=== PATIENT | male | born 1985 | race Hispanic/Latino ===

== ENCOUNTER → 2018-04-28 | Day surgery (SDC) | payer OTHER ==
[~2018-04-28] VITALS: Ht 180.3 cm; Wt 98.1 kg
[~2018-04-28] MED LIST: FLOMAX0.4 M1 PO; PERCOCET 5-3251 EACH PO; TRAMADOL HCL50 M1 PO; ZOFRAN4 M2 PO
--- NOTE | 2018-04-28 19:26 | Operative Report ---
Operative/Inv Procedure Report Surgery Date: 04/28/18 Name of Procedure: right ureter eswl, cystoscopy right stent removal, fluoroscopy Pre-Operative Diagnosis: right ureter stone with stent Post-Operative Diagnosis: same Estimated Blood Loss: scant Surgeon/Electrical Intern: Steven Pearce MD Anesthesia: moderate sedation Specimens: right stent Complications: none Condition: improved: pain free on discharge home Operative/Procedure Note Note: The patient was taken to the operating room and placed on the ESWL table in supine position. Time out was performed, with the patient awake, to confirm identity, procedure, laterality, and other pertinent glen-operative information. After adequate anesthesia, the patient was positioned so that the right flank was placed over the ESWL table cut-out, and overlying the dome of the shockwave generator. C-arm fluroscopy, as well as renal US was used to locate the stone, and evaluate the right kidney. The stone was faintly visible on fluroloscopy at the right mid-ureter. Renal US confirmed mild hydronephrosis with no additional stone seen in the right kidney. The right ureter stone was approximate 5 mm in size, and faintly visible with fluoroscopy. Using the C-Arm fluoroscopy in an A-P, and Oblique view, the position of the ureter stone was optimized at the center of the crosshairs. At this point, E.S.W.L. was initiated at low power levels x 200 shocks. After noting the patient's tolerance to the shockwaves, the shockwave power level was quickly maximized. At the end of the procedure, the composition of the stone had changed significantly indicating the pulverization of the ureter stone. A total of 2500 shockwaves were delivered to the stone, in order to achieve adequate lithotrypsy. Once the ESWL concluded, the pt. was repositioned in frog-legged position, draped and prepped in the usual surgical fashion. A 22 [place] cystoscope sheath with a 30 angle lens was then inserted into the bladder. The bladder was thoroughly and systematically surveyed revealing no tumor, no stone. Both ureteral orifices were in their orthotopic position. The right orifice was intubated with a stent. The alligator forcep was then used to grasp the stent, and the cystoscope along with entire stent was removed without difficulty. The patient tolerated the procedures well, was awakened, and taken to recovery in satisfactory condition via stretcher. The pt will be dischared to home with pain meds, diet orders, and intructions to catch fragments with straining the urine. The patient is to have follow-up renal ultrasound and KUB within 1-2 weeks and f/u in the office after discharge. Discharge Disposition: Same Day Admissions CC: Ramses BOYD,Steven
== END ==
LOC: STS 01:19
DX: N20.1 Calculus of ureter (principal); N13.30 Unspecified hydronephrosis
CPT/HCPCS: J2250

== ENCOUNTER → 2018-05-14 | Day surgery (SDC) | payer OTHER ==
[~2018-05-14] VITALS: Ht 180.3 cm; Wt 97.1 kg
[~2018-05-14] MED LIST changes: +MECLIZINE HCL25 MG PO; +ZOLOFT25 M1 PO
[2018-05-14 10:09] LABS: ABSOLUTE BASOPHIL COUNT 0 /CUMM (0.0-0.2); ABSOLUTE EOSINOPHIL COUNT 0.1 /CUMM (0.0-0.7); ABSOLUTE GRANULOCYTE CT 6.6 /CUMM (1.4-6.5); ABSOLUTE LYMPH COUNT 1.7 /CUMM (1.2-3.4); ABSOLUTE MONOCYTE COUNT 1.5 /CUMM (0.10-0.60); BASOPHIL % 0.4 % (0.0-2.0); EOSINOPHIL % 1.5 % (0-5); GRANULOCYTE % 65.9 % (42.2-75.2); HEMATOCRIT 46.1 % (42-52); MEAN CORPUSCULAR HGB 30.7 PG (27.0-31.0); MEAN CORPUSCULAR HGB CONC 34.6 G/DL (33.0-37.0); MEAN CORPUSCULAR VOLUME 88.8 FL (80.0-94.0); MEAN PLATELET VOLUME 7.8 FL (7.4-10.4); PLATELET COUNT 334 /CUMM (130-400)
--- NOTE | 2018-05-14 10:27 | ED GENERAL ADULT ---
History of Present Illness General Chief Complaint: Abdominal Pain/Flank Pain Stated Complaint: flank pain Source: patient Exam Limitations: no limitations Vital Signs & Intake/Output Vital Signs & Intake/Output Vital Signs Date Time Temp Pulse Resp B/P B/P Pulse O2 O2 Flow FiO2 Mean Ox Delivery Rate 05/14 1740 98.0 68 18 145/92 98 Room Air Room Air 05/14 1656 97.5 76 20 125/73 98 Room Air 05/14 1427 98.7 69 20 130/75 98 Room Air 05/14 1154 97.9 76 18 129/77 99 Room Air 05/14 0857 96.6 110 18 124/78 99 Room Air Room Air ED Intake and Output 05/15 0000 05/14 1200 Intake Total 1000 Output Total Balance 1000 Intake, IV 1000 Patient 214 lb Weight Weight Reported by Patient Measurement Method Allergies Coded Allergies: nut - unspecified (Severe, ANAPHYLAXIS 05/14/18) ibuprofen (Intermediate, ANAPHYLAXIS 05/14/18) sulfamethoxazole (From Bactrim) (Intermediate, ANAPHYLAXIS 05/14/18) trimethoprim (From Bactrim) (Intermediate, ANAPHYLAXIS 05/14/18) aspirin (ANAPHYLAXIS 05/14/18) Reconcile Medications Meclizine HCl 25 MG TABLET 1 TAB PO TIDPRN light headed Ondansetron HCl (Zofran) 4 MG TABLET 1 TAB PO TID PRN NAUSEA/VOMITING ( Reported) Sertraline HCl (Zoloft) 25 MG TABLET 1 TAB PO DAILY MENTAL HEALTH (Reported) Triage Note: PT RETURNS TO ED WITH C/O BILATERAL FLANK PAIN, "I HAVE KIDNEY STONES, I DIDN'T EVEN MAKE IT 3 WEEKS". Triage Nurses Notes Reviewed? yes HPI: 32-year-old male with past medical history renal stones recently seen in the emergency department 3 weeks ago underwent stent placement on the right with Dr. Pearce subsequently removed and received lithotripsy for a 6 mm stone on the right. At that time patient was notified of a 7 mm stone on the left side. Patient was scheduled to have a follow-up with Dr. Pearce this week to obtain renal ultrasound and analyzed stones. However this morning he woke up and after his first urination had an acute onset of sweating low back pain which was bilateral radiating to his abdomen and down to his groin. Patient denies any dysuria or hematuria noted. He reports the pain is intermittent and sharp in nature scoring 8-9 out of 10. Of note patient has an allergy to NSAID class which causes his eyes to swell. Patient denies any fever, chills, chest pain, cough, or shortness of breath. PMH also includes anxiety, depression, PTSD. Patient is being treated at [facility] for these issues. He recently stopped taking Zoloft as he did not tolerated it well with significant lethargy. He started smoking tobacco 1 week ago; 1ppd. Smoking cessation was advised. Patient reports minimal etoh consumption. (Bessie Cespedes MD) Past History Travel History Traveled to [place] past 21 day No Medical History Any Pertinent Medical History? see below for history Neurological: NONE EENT: NONE Cardiovascular: NONE Respiratory: NONE Gastrointestinal: NONE Hepatic: elevated LFT's Renal: KIDNEY STONES Musculoskeletal: NONE Psychiatric: depression Endocrine: NONE Blood Disorders: NONE Cancer(s): NONE Surgical History Surgical History: none, right ureteral stenting; lithotripsy Psychosocial History Where do you live Home Who do you live with Patient and family Services at Home None What is your primary language Georgian Tobacco Use: Current Daily Use Daily Tobacco Use Amount/Type: =< 4 Cigarettes daily (started one week ago; 1ppd ), => 5 Cigarettes daily ETOH Use: occasional use Illicit Drug Use: denies illicit drug use Family History Hx Contributory? No (Bessie Cespedes MD) Review of Systems Review of Systems Constitutional: Reports: diaphoresis. Denies: chills, fever, malaise. EENTM: Reports: no symptoms. Respiratory: Reports: no symptoms. Cardiovascular: Reports: no symptoms. GI: Reports: abdominal pain. Denies: bloating, constipation, diarrhea, nausea, vomiting. Genitourinary: Reports: urgency. Denies: dysuria, frequency, hematuria, pain. Musculoskeletal: Reports: back pain. Skin: Reports: no symptoms. Neurological/Psychological: Reports: anxiety, depressed. (Bessie Cespedes MD) Physical Exam Physical Exam General Appearance: well developed/nourished, alert, awake, moderate distress Head: normal appearance Eyes: Right: normal appearance, PERRL. Neck: normal inspection, supple Respiratory: normal breath sounds, chest non-tender, no respiratory distress Cardiovascular: tachycardia Gastrointestinal: guarding, tenderness Back: CVA tenderness (R), CVA tenderness (L) (Bessie Cespedes MD) Core Measures ACS in differential dx? No CVA/TIA Diagnosis: No Sepsis Present: No Sepsis Focused Exam Completed? No (Peter LOUIS,Travon Whitaker) Progress Differential Diagnoses I considered the following diagnoses in my evaluation of the patient: [renal stones; pyelonephritis; uti] Plan of Care: Orders Procedure Date/time Status Nothing by Mouth 05/14 D Active CULTURE,URINE 05/14 1029 Active URINALYSIS 05/14 933 Complete COMPREHENSIVE METABOLIC PANEL 05/14 933 Complete CBC WITHOUT DIFFERENTIAL 05/14 933 Complete Laboratory Tests 05/14/18 1030: Urinalysis LIGHT H, Urine Color YEL, Urine Clarity HAZY H, Urine pH 6.0, Ur Specific [place] >= 1.030, Urine Protein 100 H, Urine Ketones NEG, Urine Nitrite NEG, Urine Bilirubin NEG@ICTO, Urine Urobilinogen 1.0, Ur Leukocyte Esterase TRACE H, Ur Microscopic SEDIMENT EXAMINED, Urine RBC >75 H, Urine WBC 1-3 H, Ur Epithelial Cells RARE, Urine Crystals 4+ CA OX H, Urine Bacteria MOD H, Urine Mucus MANY H, Urine Hemoglobin LARGE H, Urine Glucose NEG 05/14/18 1002: Anion Gap 10, Estimated GFR > 60, BUN/Creatinine Ratio 10.0, Glucose 105 H, Calcium 9.8, Total Bilirubin 1.0, AST 68 H, ALT 157 H, Alkaline Phosphatase 90 , Total Protein 7.6, Albumin 4.4, Globulin 3.2, Albumin/Globulin Ratio 1.4, CBC w Diff NO MAN DIFF REQ, RBC 5.20, MCV 88.8, MCH 30.7, MCHC 34.6, RDW 13.0, MPV 7.8, Gran % 65.9, Lymphocytes % 17.1 L, Monocytes % 15.1 H, Eosinophils % 1.5, Basophils % 0.4, Absolute Granulocytes 6.6 H, Absolute Lymphocytes 1.7, Absolute Monocytes 1.5 H, Absolute Eosinophils 0.1, Absolute Basophils 0 Microbiology 05/14 1030 URINE ROUT: Urine Culture - RECD Comments: 10:35 32 year old male with known right and left renal stones s/p stenting placement and removal with subsequent lithotripsy on right for 6mm stone [address] Pearce performed initial procedure but is currently out of town. Patient was suppose to see him in his office next week for renal u/s and follow up but presented to ED this morning with acute bilateral back pain radiating to abdomen and groin. Work up will include CBC, BEP, UA, UCx, ct abd/pelv, pain control with 0.5mg Dilaudid IV, IV NS 1L bolus, call to Dr. Pearce (Dr. Clark wall insulation sprayer) 12:47 Laboratory work up shows UA with RBC and WBC with moderate bacteria present. Chemistry revealed elevated LFTs with ALT 157 (previous 102). Patient states he is aware of this finding and this has been present for 3 years. He was diagnosed with NAFLD and is working with Dr. Souza (PCP) regarding this issue. Patient has lost over 100lbs since last year trying to improve his enzymes. He will continue evaluation for this finding as an outpatient. 14:12: results of CT abd/pelv: IMPRESSION: 1. Right renal hydronephrosis and hydroureter secondary to a stone lodged in the proximal right ureter at the junction of the proximal third to distal two-thirds. The stone is approximately 4 mm in diameter. There has been no change. 2. Redemonstration of a small nonobstructing stone lower calyx left kidney. 3. Stable mildly prominent mesenteric lymph nodes. 16:[address] Clark with findings. He requests that patient be kept NPO and he will come in to place a ureteral stent at 18:00 tonight. He plans to discharge the patient home after the procedure. (Bessie Cespedes MD) Initial ED EKG: none (Travon Green DO) Departure Departure Condition: Stable Referrals: Harley BOYD,Mukul Swartz (PCP/Family) Departure Forms: Customer Survey General Discharge Information (Bessie Cespedes MD) Departure Disposition: STILL A PATIENT Clinical Impression Primary Impression: Kidney stones Comments 05/14/18 4:10 PM The patient has a lodged right-sided stone. There is been no movement. The case was discussed with Dr. Clark. He is for stent placement in the operative suite this evening. The patient will be signed out to Dr. Sagastume at 7 PM OR/GI Note Spoke With: Eduardo BOYD,Parveen Quiroga ED Treatment Decision: JONH JAUREGUI requires urgent operative management or an emergent procedure that cannot be performed in the Emergency Room setting. Transport To: Surgical Suite (Travon Green DO) Resident Co-Sign Statement Statement: ED Attending supervision documentation- x I saw and evaluated the patient. I have also reviewed all the pertinent lab results and diagnostic results. I agree with the findings and the plan of care as documented in the Resident's documentation. [] I have reviewed the ED Record and agree with the Resident's documentation. [] Additions or exceptions (if any) to the Resident's note and plan are summarized below: [] (Tanika BOYD,Claudy) Critical Care Note Critical Care Note Critical Care Time: non-applicable (Travon Green DO)
--- NOTE | 2018-05-14 14:07 | CT SCAN REPORT ---
EXAMINATION: CT ABDOMEN AND PELVIS WITHOUT CONTRAST CLINICAL INFORMATION: Kidney stone, back pain. COMPARISON: 04/24/2018 TECHNIQUE: Multidetector volumetric imaging was performed from the superior aspect of the liver through the pubic symphysis. It is a noncontrast study. Sagittal and coronal reformatted images were obtained on the technologist's workstation. DLP: 367 mGy-cm FINDINGS: LOWER THORAX: Included lung bases are clear. HEPATOBILIARY: No focal hepatic lesions. No biliary ductal dilatation. GALLBLADDER: Gallbladder unremarkable. SPLEEN: Spleen is normal in size. PANCREAS: No focal mass or ductal dilatation. STOMACH AND GASTROINTESTINAL TRACT: Stomach is grossly unremarkable. There is no bowel distention or thickening. No CT evidence of appendicitis. ADRENALS: No adrenal nodules. KIDNEYS/URETERS: Redemonstration of the moderate right renal hydronephrosis and hydroureter secondary to a stone lodged in the proximal right ureter at the junction of the proximal third and distal two-thirds. The stone measures about 7 mm craniocaudally and 4 mm transversely. Has not significantly changed from prior study. As previously noted, there is an additional nonobstructing 3 mm stone in the lower calyx of the left kidney. Perinephric fat remains clear on both sides. URINARY BLADDER: Partially decompressed. PELVIC VISCERA: Unremarkable PERITONEUM: No free air or fluid. LYMPH NODES: Redemonstration of mildly prominent peritoneal lymph nodes, uncertain etiology, the largest right of midline measures about 1.5 x 1.2 cm. Purcell image marked. VASCULAR:Abdominal aorta normal in size, no aneurysm found. BONES, ABDOMINAL WALL AND SOFT TISSUES: Age-appropriate changes of the spine and skeletal system, no destructive osteolytic or osteosclerotic bone lesion found. IMPRESSION: 1. Right renal hydronephrosis and hydroureter secondary to a stone lodged in the proximal right ureter at the junction of the proximal third to distal two-thirds. The stone is approximately 4 mm in diameter. There has been no change. 2. Redemonstration of a small nonobstructing stone lower calyx left kidney. 3. Stable mildly prominent mesenteric lymph nodes. Exam otherwise remains normal.
[2018-05-14 17:40] VITALS: BP 145/92
--- NOTE | 2018-05-14 20:04 | RADIOLOGY REPORT ---
EXAMINATION: INTRAOPERATIVE FLUOROSCOPIC GUIDANCE AND ABDOMEN CLINICAL INFORMATION: Nephrolithiasis. Ureteroscopy. COMPARISON: Same day abdominal and pelvic CT. TECHNIQUE: Fluoroscopic time was utilized in the OR for Dr. Clark. Fluoroscopic images were obtained in the AP projection. FINDINGS: Fluoroscopic guidance was provided during a right ureterogram and right double-J ureteral stents. On the final images, the stent is in appropriate position. FLUOROSCOPY TIME: 7 seconds of fluoroscopic time was utilized for the entirety of this examination. IMPRESSION: Fluoroscopic guidance was provided during a right ureterogram and right double-J ureteral stents. On the final images, the stent is in appropriate position.
--- NOTE | 2018-05-14 21:47 | Operative Report ---
Operative/Inv Procedure Report Surgery Date: 05/14/18 Name of Procedure: Cystoscopy and right ureteral stent placement with fluoroscopy Pre-Operative Diagnosis: Right ureteral calculus with colic Post-Operative Diagnosis: Same Estimated Blood Loss: scant Surgeon/Dispute Resolution Specialist: Dr. Clark Anesthesia: laryngeal mask airway Operative Indication: History of a right ureteral calculus, with previous colic. Underwent stent placement, with subsequent lithotripsy. Stent was removed 2 weeks ago, he developed sudden onset of pain early this morning. Pain was severe and accompanied by nausea and vomiting. He was seen in the ER, and his pain persisted despite Dilaudid. He underwent a CT scan, which revealed a persistent right ureteral calculus. I discussed the situation at length with the patient and the tenderness there. I recommend he undergo a right ureteral stent placement, with further procedure to be performed not emergently. He has a proximal stone, which could warrant repeat lithotripsy. He is agreeable to stent placement, knowing that it will not resolve the stone, which should relieve his pain. He will have the stone resolved electively by Dr. Pearce. Patient verbalizes good understanding of the situation, and wishes to proceed with right ureteral stent placement. He was explained the complications/indications thereof at great length. Operative/Procedure Note Note: After uneventful induction of general anesthesia via LMA, patient was supine on the cystoscopy table in lithotomy position. He was prepped and draped in a sterile fashion. At this point a 22 [place] Islander cystoscope was passed per urethra and into the bladder. Thorough inspection of bladder did not reveal any stones or mucosal lesions. The right orifice was noted to be normal in addition a contour. This was cannulated with an open-ended catheter, which was passed up into the right kidney. Through this was passed a Glidewire, and the ureteral catheter was removed. Over the guidewire was then passed a double-J stent which was positioned fluoroscopically as well as endoscopically. Upon completion of this the bladder was emptied and the cystoscope was removed. The patient was returned to recovery room in good condition. CC: Ramses BOYD,Steven
--- NOTE | 2018-05-18 12:49 | OP PSYCH INTRA-AGENCY ASSESS ---
Psych Intra-Agency Transfer Date of Group or Service 05/18/18 Time of Group or Service: 1100 (-0125) Part 1 Transferring Program: IOP Accepting Program: OPS Presenting Problem: Patient is a 32 year old male who is being referred by [facility]. Patient was in IOP from (05/05 - 05/13/18) attending three sessions and was unable to complete the program due to inability to be in a group setting due to PTSD symptoms. Prior he was seen in the ED two days after he took percocets and had thoughts "maybe it would be better if I wasn't alive." He woke up immediately with remorse. Sharing he lost both of his dads and does not want his children to go through the pain. At today's intake patient stated overall he is "struggling". Rated current depression 8/10 and anxiety 8/10, with 10 being the worst. Identified greatest stressor as "life in general" and identified an effective coping skill as "smoke cigs". Patient denies SI/HI at this time. Denies feeling isolated/socially withdrawn at this time Patient states his goal of treatment is "feel normal". Patient shared his support system consists of "mom, aunt, and uncle". Shared today is a tough day for him, it is the anniversary of his step-father's passing. Preferred Learning Style i.e. visual, auditory, experiential, etc: hands on Orientation Person, Place, Situation Affect WNL Speech WNL Neuro-vegetative Concentration Poor, Sleep Disturbance Thought Process Logical/Rational, WNL Thought Content WNL Memory WNL Insight Fair Judgment Fair Appearance Dress/Hygiene: Casually dressed, appears stated age, neatly groomed Risk Assessment RISK ASSESSMENT Suicidal Ideation/Attempts (past or current): Past: Recent attempt OD 05/01/18 Current: Denies Family History: brother - attempted a couple years ago Homicidal Ideation/Attempts (past or current): Past: Denies Current: Denies Protective factors for SI/HI: "Kids" Degree of Intent None Risk Factors Hx of suicide attempt(s), Male, Substance Abuse Lethality Rating 1 (mild) Medication Review Allergies Coded Allergies: nut - unspecified (Severe, ANAPHYLAXIS 05/14/18) ibuprofen (Intermediate, ANAPHYLAXIS 05/14/18) sulfamethoxazole (From Bactrim) (Intermediate, ANAPHYLAXIS 05/14/18) trimethoprim (From Bactrim) (Intermediate, ANAPHYLAXIS 05/14/18) aspirin (ANAPHYLAXIS 05/14/18) Medication Details MEDICATIONS PSYCHIATRIC MEDICATIONS None Part 2 Assessed Needs and Initial Treatment Plan/Goals: Patient will benefit from continued treatment in [facility]. He will attend medication management with Dr. Eduar MD monthly/as needed. Patient is set to start individual therapy tomorrow at [facility]. Further Evaluations Recommended: X None Indicated Neurological Vocational Psychiatric X Medical (H&P) Nutritional Psychological Educational SA Assessment Other * To be completed by Admitting MD or Assigned DIRECTOR SECURITY MANAGEMENT Only PRE-CERTIFICATION FOR ADMISSION- [facility] Care Provider: Name of Reviewer/Research Technician: Contact Telephone #: # Inpatient days approved: Authorization #: Date of Next Review: DSM5/PS Stressors/Medical Prob Diagnosis' (DSM 5, Stressors, Medical): F32.9 Unspecified depression, F41.1 NARENDRA, F12.20 Cannabis use disorder moderate, r/o PTSD, r/o Specific phobia situational; chronic pain (arthritis), kidney stones; marital, complicated grief Comments: WHODAS: 19 PCL-C: 46
== END ==
LOC: ERH 08:54 → ER-OR 09:02 → ERH 09:02 → ER-OR 17:40 → STS 17:40
PROVIDERS: Physician Assistant Medical
DX: N20.1 Calculus of ureter (principal); R10.9 Unspecified abdominal pain; R11.2 Nausea with vomiting, unspecified; R79.89 Other specified abnormal findings of blood chemistry; F17.200 Nicotine dependence, unspecified, uncomplicated
CPT/HCPCS: 74176; 76000; 81001; 87086; 96374; 96375; 96376; C2617; J0690; J2250; J2405

== ENCOUNTER → 2018-05-21 | Day surgery (SDC) | payer OTHER ==
[~2018-05-21] VITALS: Ht 180.3 cm; Wt 97.1 kg
--- NOTE | 2018-05-22 10:09 | Operative Report ---
Operative/Inv Procedure Report Surgery Date: 05/21/18 Name of Procedure: cystoscopy: right ureteroscopy with laser standby for ureter stone, stent removal. retrograde pyelogram, fluorosocpy. Pre-Operative Diagnosis: right urete stone and stent Post-Operative Diagnosis: same Estimated Blood Loss: scant Surgeon/Director Apparel: Steven Pearce MD Anesthesia: general endotracheal tube Specimens: right ureter stone and stent Complications: none Condition: stone free. Operative/Procedure Note Note: The patient was taken to the operating room and moved onto the OR table in supine position. Timeout was performed, with the patient awake, in order to confirm the patient's correct identity, procedure, laterality, anesthesia, antibiotics, and other pertinent perioperative information. After adequate anesthesia and antibiotics, the patient was then placed in lithotomy stirrups, draped and prepped in the usual surgical fashion. A 22 [place] cystoscope sheath with the 30 angle lens was inserted into the ureathra without difficulty. Upon entering the bladder, the bladder was noted to be free of tumor, and free of stone. Both ureteral orifices were in their orthotopic position, with clear reflux from the left ureter. The right ureter had a stent in place, which was grasped with an aligator grasper, and extracted intact, and without difficulty. The cystoscope was then re-inserted into the bladder. The right ureteral orifice was intubated with an 8 [place] cone-tipped catheter. Retrograde pyelogram was performed revealing a filling defect in the mid-proximal ureter consistent with small stone, and distal narrowing consistent with edema/ stricture. On fluoroscopy, there was mild proximal hydronephrosis. The cone- tipped catheter was removed, and then the right orifice was intubated with a 0.035 safety gluidewire. The Glidewire was advanced into the right ureter, and advanced into the right renal pelvis, with fluoroscopic visualization. Over the gluide wire, a flexible ureteroscope was rail-roaded, and advanced with fluoroscopic visualization into the right renal pelvis, with difficulty past the strictured area. The ureteroscope was then removed leaving the Glidewire in place. Over the Glidewire a 10 [place] by 35 cm ureteral access sheath was gently railroaded over the Glidewire. With fluoroscopic visualization, gentle dilatation with advancement of the ureteral access sheath was accomplished without difficultyt. The obturator was removed leaving the sheath in place. The gluidewire was left in place, and the flexible ureteroscope was advanced via the access sheath without difficulty. The small ureter stone was visualized, and under direct visualization a Bard zero-tip basket was deployed to capture it. The entire stone was easily extracted and sent for analysis. Laser standby was disengaged. The flexible ureteroscope was then advanced, and used to examine the renal pelvis, and all calyxes. NO tumor, now stones were seen in the kidney: however, multiple Apolinar plaques were noted for future stone formation. With the flexible ureteroscope slowly retracted, the entire length of the ureter was aslo visualized in order to confim no significantly stone framents, nor tumor was seen on the way out. The bladder was then drained via the cystoscope which was then removed. An 18 [place] leon was then inserted without difficulty to be removed in the RR. The patient tolerated both procedures well, and was taken to the recovery room in satisfactory condition. Once discharged, the pt. will have pain medication, antibiotics and instructions to follow up in one or 1-2 week's time for renal US /KUB. Discharge Disposition: PACU Additional Comments: pt to schedule f/u renal US in 1-2 weeks. CC: Steven Pearce MD
--- NOTE | 2018-05-25 17:34 | RADIOLOGY REPORT ---
EXAMINATION: CR ABDOMEN/INTRAOPERATIVE FLUOROSCOPY CLINICAL INDICATION: Right ureteral stent removal. Ureteroscopy in retrograde pyelogram in OR. COMPARISON: Right upper quadrant ultrasound dated 05/20/2018. TECHNIQUE/FINDINGS: Fluoroscopic equipment was dedicated to the operating room for the performance of an intraoperative procedure. Several 9 spot films were acquired and are archived in PACS demonstrating various stages of opacification of the right renal collecting system and proximal right ureter with caliectasis/mild hydronephrosis demonstrated. Please refer to operative notes for procedural detail. FLUOROSCOPY TIME: 0.3 minutes. IMPRESSION: Administrative dictation for intraoperative fluoroscopy and image archiving in PACS. Please refer to operative notes for details.
== END ==
LOC: STS 03:58
DX: N13.2 Hydronephrosis with renal and ureteral calculous obstruction (principal); F17.200 Nicotine dependence, unspecified, uncomplicated
CPT/HCPCS: 76000; J0131; J2250; J3490